=== PATIENT | male | born 1945 | race Caucasian/White ===

== ENCOUNTER 2017-06-17 07:13 | Emergency (ER) | payer MEDICARE, OTHER ==
[~2017-06-17] VITALS: Ht 172.7 cm; Wt 117.9 kg
[2017-06-17] MEDS ORDERED: TOPROL XL50 MG PO (07:30)
[2017-06-17] MEDS ORDERED: FUROSEMIDE20 MG PO (07:30)
[2017-06-17] MEDS ORDERED: REPATHA SY140 MG/1 M SUB-Q (07:30)
[2017-06-17] MEDS ORDERED: PRINIVIL10 MG PO (07:31)
[2017-06-17] MEDS ORDERED: LEVO-T25 MCG PO (07:31)
[2017-06-17] MEDS ORDERED: BAYER CHEWABLE81 MG PO (08:41)
[2017-06-17] MEDS ORDERED: VITAMIN B COMP1 EACH PO (08:41)
[2017-06-17] MEDS ORDERED: VITAMIN D31000 UNI1 PO (08:41)
[2017-06-17] MEDS ORDERED: PROAIR HFA8.5 GM INH (09:51)
[2017-06-17] MEDS ORDERED: NITROSTAT0.4 MG SL (09:51)
--- NOTE | 2017-06-18 17:22 | EKG ---
[facility] [address] [facility] [place] [address] Signed Normal sinus rhythm Normal ECG No previous ECGs available Confirmed by CHRISTELLE ORTIZ MD ([id number] on 06/18/2017 5:22:20 PM Electronically Signed By: CHRISTELLE ORTIZ MD 06/18/17 1722 PATIENT NAME: ANGELMUSTAPHA NURIS Electrocardiogram DATE OF : 41 PHYSICIAN: CHRISTELLE ORTIZ MD REPORT #: [id number] REPORT IS CONFIDENTIAL AND NOT TO BE RELEASED WITHOUT AUTHORIZATION
== END 2017-06-17 10:10 | disposition home or self-care (01) ==
LOC: ED 07:13
DX: J45.909 Unspecified asthma, uncomplicated (principal); R07.9 Chest pain, unspecified; Z88.1 Allergy status to other antibiotic agents; Z88.8 Allergy status to other drugs, medicaments and biological substances; Z79.82 Long term (current) use of aspirin; Z79.899 Other long term (current) drug therapy
CPT/HCPCS: 71010; 80053; 83735; 83880; 84484; 85025; 85379; 85610; 85730; 93005; 93010; 94640; 96374; 99284; J1885